=== PATIENT | female | born 1965 | race Caucasian/White ===

== ENCOUNTER 2016-03-11 16:19 | Emergency (ER) | payer OTHER, MEDICAID ==
[~2016-03-11] VITALS: Ht 152.4 cm; Wt 81.6 kg
[2016-03-11 16:25] VITALS: BP 134/89; PULSE 96; RESP 16; TEMP 97; O2SAT 97
[2016-03-11] MEDS ORDERED: KETOROLAC TROMETHAMINE 60 MG/2 ML VIAL IM ONE (18:15)
[2016-03-11 18:55] VITALS: BP 122/84; PULSE 88; RESP 16; TEMP 97; O2SAT 99
== END 2016-03-11 18:55 | disposition home or self-care (01) ==
LOC: SED 16:19
DX: S93.601A Unspecified sprain of right foot, initial encounter (principal); X58.XXXA Exposure to other specified factors, initial encounter; Y93.89 Activity, other specified; Y99.8 Other external cause status; Y92.89 Other specified places as the place of occurrence of the external cause
CPT/HCPCS: 29515; 73610; 96372; 99284; J1885